=== PATIENT | female | born 1950 | race Caucasian/White ===

== ENCOUNTER 2017-02-13 05:57 | Day surgery (SDC) | payer OTHER ==
--- NOTE | 2017-02-12 15:55 | PREOPHP ---
DATE OF ADMISSION: 02/13/2017 HISTORY OF PRESENT ILLNESS: This 66-year-old patient is admitted for elective cataract surgery of t he right eye. Patient has had decreased vision in that eye for the past 2 years. One year ago, the patient underwent cataract surgery in the left eye with good visual result. The patient also has a positive systemic history for carcinoma of the breast and underwent surgery in 03/2016 followed by radiation therapy. CURRENT MEDICATIONS: Include: 1. Atorvastatin. 2. Cozaar 3. Metoprolol. 4. Ibuprofen. 5. Anastrozole. ALLERGIES: THERE ARE NO KNOWN ALLERGIES. PHYSICAL EXAMINATION: Visual acuity best corrected is 20/70 in the right eye and 20/25 in the left eye. Slit lamp examination reveals a dense central posterior subcapsular opacity in the right eye. The left eye has a posterior chamber intraocular lens in appropriate position. Applanation tonomet ry is 16 mmHg in each eye. Examination of the retina is within normal limits. DIAGNOSIS: Posterior subcapsular cataract eye right eye. PLAN: Cataract extraction with lens implant, right eye. The risks and alternatives to the surgery have been discussed with the patient and patient has opted to proceed with surgery in hopes of obtai michelle improve visual acuity leading to a greater ability to perform activities of daily living. Dictated By: JOLYNN SHEPARD/JULIAN Conf#: [id number] DID#: [id number]
[2017-02-13] VITALS (11 sets, daily range): BP systolic 145–177; BP diastolic 66–85; PULSE 50–59; RESP 12–19; Ht 160 cm; Wt 95.0 kg
[~2017-02-13] VITALS: Ht 160 cm; Wt 95.0 kg
[2017-02-13] MEDS ORDERED: LIDOCAINE 4% (MPF) 5 ML INJ ONE (06:09)
[2017-02-13] MEDS ORDERED: GENTAMICIN 80 MG INJ ONE (06:09)
[2017-02-13] MEDS ORDERED: CARBACHOL 0.01% 1.5 ML OPH INJ ONE (06:09)
[2017-02-13] MEDS ORDERED: CEFAZOLIN 1 GM INJ ONE (06:09)
[2017-02-13] MEDS ORDERED: DEXAMETHASONE 4 MG/ML 1 ML INJ ONE (06:10)
[2017-02-13] MEDS ORDERED: HYALURONATE/CHONDROITIN 1ML OPH INJ ONE (06:10)
[2017-02-13] MEDS ORDERED: EPINEPHrine 1 MG INJ ONE (06:10)
[2017-02-13] MEDS ORDERED: CYCLOPENTOLATE/PHENYLEPH 2 ML OPH OPER SCH (07:00)
[2017-02-13] MEDS ORDERED: DICLOFENAC 0.1% 2.5 ML OPH OPER SCH (07:00)
[2017-02-13] MEDS ORDERED: METO-429 PO (07:00)
[2017-02-13] MEDS ORDERED: CIPROFLOXACIN 0.3% 2.5 ML OPH OPER SCH (07:00)
[2017-02-13] MEDS ORDERED: TROPICAMIDE 1% 2 ML OPH OPER SCH (07:00)
[2017-02-13] MEDS ORDERED: LOSA50TA6 PO (07:01)
[2017-02-13] MEDS ORDERED: CALC500T11 PO (07:01)
[2017-02-13] MEDS ORDERED: CHOL20003 PO (07:02)
[2017-02-13] MEDS ORDERED: ATOR10TA65 PO (07:03)
[2017-02-13] MEDS ORDERED: OMEG1CAP9 PO (07:03)
[2017-02-13] MEDS ORDERED: ANAS1TAB PO (07:44)
[2017-02-13] MEDS ORDERED: CARBACHOL 0.01% 1.5 ML OPH INJ IO ONE (08:21)
[2017-02-13] MEDS ORDERED: DEXAMETHASONE 4 MG/ML 1 ML INJ INJ ONE (08:21)
[2017-02-13] MEDS ORDERED: HYALURONATE/CHONDROITIN 1ML OPH INJ IO ONE (08:21)
[2017-02-13] MEDS ORDERED: CEFAZOLIN 1 GM INJ INJ ONE (08:21)
[2017-02-13] MEDS ORDERED: PROPOFOL 20 ML ONE (08:28)
[2017-02-13] MEDS ORDERED: hydrALAzine 20 MG INJ IV PRN (09:00)
[2017-02-13] MEDS ORDERED: OXYCODONE/ACETAMINOPHEN (5/325) TAB PO PRN ×2 (09:00)
[2017-02-13] MEDS ORDERED: ONDANSETRON 4 MG INJ IV PRN (09:00)
[2017-02-13] MEDS ORDERED: MEPERIDINE 25 MG INJ IV PRN (09:00)
[2017-02-13] MEDS ORDERED: METOCLOPRAMIDE 10 MG INJ IV PRN (09:00)
[2017-02-13] MEDS ORDERED: LABETALOL HCL 20MG INJ IV PRN (09:00)
[2017-02-13] MEDS ORDERED: FENTAnyl 50 MCG/ML VIAL IV PRN ×2 (09:00)
[2017-02-13] MEDS ORDERED: DIPHENHYDRAMINE 50 MG INJ IV PRN (09:00)
[2017-02-13] MEDS ORDERED: MIDAZOLAM 1 MG/ML 2 ML INJ IV PRN (09:00)
--- NOTE | 2017-02-13 11:00 | OPR ---
DATE OF OPERATION: 02/13/2017 PREOPERATIVE DIAGNOSIS: Cataract, right eye. POSTOPERATIVE DIAGNOSIS: Cataract, right eye. OPERATION PERFORMED: Cataract extraction with lens implant, right eye. SURGEON: Jolynn Parra MD ANESTHESIA: Dr. Mir OPERATION: Phacoemulsification with posterior chamber intraocular lens implant, right eye. PROCEDURE: The patient was brought to the operating room and placed on the table with an IV in plac e and the patient attached to an monitor car operator. Oxygen was given via face mask. After some intravenous sedation was administered, local anesthesia was given using Xylocaine 2% with epinephrine, mixed with Marcaine 0.5%. This was given in a lid block and retrobulbar injection. The patient was then prepped and draped in the usual sterile manner. A wire lid speculum was inserted between the lids of the right eye. A Superblade was used to enter t he anterior chamber at the corneoscleral limbus at the 10:30 o'clock position. A separate incision w as made using a 3.0-mm keratome which entered the corneoscleral junction at the 12 o'clock position. Through this 3-mm opening, an irrigating cystotome was introduced into the anterior chamber. The ch denis was filled with Viscoat and an anterior capsulotomy was performed. Balanced salt solution was then used for hydrodissection of the lens. A phacoemulsification handpiece was then brought into th e field and introduced into the anterior chamber. The lens nucleus was emulsified using a deep groov e and cracking the nucleus into quadrants. Following this, each quadrant was aspirated and emulsifie d at the pupillary margin. After this was completed, the irrigation/aspiration handpiece was brought to the field, introduced i nto the posterior chamber, and the lens cortical material was removed. When this was completed, ben tional Viscoat was injected into the anterior and posterior chambers. The 3-mm opening had its internal lips enlarged, and then the posterior chamber intraocular lens adeline suring 23.5 diopters ([employer] Model LI61AO) was then injected into the posterior chamber using the lens injector system. After the leading haptic was introduced into the capsular b ag and the lens optic was present in the center of the eye, the injector was removed and the trailin g haptic was grasped with non-toothed forceps and introduced into the capsular fold superiorly. A Si nskey hook was then used to rotate the intraocular lens so that the lips were oriented in the horizo ntal meridian. One 10-0 nylon suture was placed across the wound. Prior to tying, the irrigation/aspiration handpiece was reintroduced into the anterior chamber to re move the Viscoat. Miochol was instilled to constrict the pupil, and then the 10-0 nylon suture was t ied. The ends were cut short and then the knot was buried. Then, 0.5 mL of dexamethasone and 0.5 mL of Ancef were injected into the sub-Tenon space in the infe rior fornix. Ciloxan drops were then placed on the surface of the eye. The speculum was removed and a patch was applied. The patient then left the operating room in satisfactory condition. Dictated By: JOLYNN SHEPARD/JULIAN Conf#: [id number] DID#: [id number]
== END 2017-02-13 10:40 | disposition home or self-care (01) ==
LOC: SDS 05:57
PROVIDERS: ATTEND Ophthalmology
DX: H25.042 Posterior subcapsular polar age-related cataract, left eye (principal); I10 Essential (primary) hypertension; E78.5 Hyperlipidemia, unspecified; E66.01 Morbid (severe) obesity due to excess calories; Z68.37 Body mass index [BMI] 37.0-37.9, adult
CPT/HCPCS: 66984; J0171; J0690; J1100; J1580; V2632; Z7512; Z7610

== ENCOUNTER 2019-04-23 11:54 | Day surgery (SDC) | payer OTHER ==
[~2019-04-23] VITALS: Ht 154.9 cm; Wt 89.0 kg
[~2019-04-23 11:54] MED LIST: ANAS1TAB PO; ATOR10TA65 PO; CALC500T11 PO; CHOL200073 PO; LOSA50TA14 PO; METO-429 PO; OMEG1CAP17 PO
[2019-04-23 13:58] VITALS: Ht 154.9 cm; Wt 89.0 kg
[2019-04-23 14:07] VITALS: BP 123/58; PULSE 53; RESP 18
[2019-04-23 15:08] VITALS: BP 148/65; PULSE 58; RESP 20
[2019-04-23 15:35] VITALS: BP 155/71; PULSE 58; RESP 16
== END 2019-04-23 16:54 | disposition home or self-care (01) ==
LOC: GIL 11:54
PROVIDERS: ATTEND Internal Medicine Gastroenterology
DX: Z12.11 Encounter for screening for malignant neoplasm of colon (principal); D12.5 Benign neoplasm of sigmoid colon; K57.30 Diverticulosis of large intestine without perforation or abscess without bleeding
CPT/HCPCS: 88305